=== PATIENT | male | born 1970 | race Caucasian/White ===

== ENCOUNTER 2019-01-09 10:16 | Day surgery (SDC) | payer OTHER | END 2019-01-09 16:00 | disposition home or self-care (01) | LOC: AMB-ENDOS 10:16 | DX: K63.89 Other specified diseases of intestine (principal); K50.113 Crohn's disease of large intestine with fistula ==

== ENCOUNTER 2022-04-25 14:29 | Inpatient (IN) | payer OTHER ==
[~2022-04-25] VITALS: Ht 177.8 cm; Wt 98.0 kg
[2022-04-25] MEDS ORDERED: AMLODIPINE BESY10 MG PO (14:43)
--- NOTE | 2022-04-25 14:43 | NUR ---
SE RECIBE PACIENTE [facility], EL MISMO SE ENCUENTRA ALERTA Y ORIENTADOX3. REFIERE TENER DOLOR ABDOMINAL DEBIDO A QUE TIENE DIOMEDES OBSTRUCCION. SE MONITOREAN VS, SE PRESENTA A DR. DEJESUS Y SE UBICA EN SECCION K
--- NOTE | 2022-04-25 18:24 | NUR ---
PTE EVALUADO POR DR. MARQUEZ SE EJECUTA ORDENM Y SE CLAUDIA MUESTRA BAJO MEIDAS ASEPTICAS.
--- NOTE | 2022-04-25 18:56 | NUR ---
SE INTENTA COLOCAR NASOGASTRICO EN EL PROCEDIEMIENTO PTE SE LO SACO CON KENNEDY MANO . PTE REFIERE QUE SE VUELTA INTENTAR MAS TARDE
[2022-04-26] MEDS ORDERED: BACLOFEN20 MG (13:41)
[2022-04-26] MEDS ORDERED: VALSARTAN320 MG (13:42)
[2022-04-26] MEDS ORDERED: DIETHYLPROPION75 MG (13:42)
[2022-04-26] MEDS ORDERED: HUMIRA(CF)40 MG/0.1 (13:42)
== END 2022-05-03 14:29 | disposition home or self-care (01) | DRG 389 ==
LOC: ER 14:29 → SURH 21:09 → SURG 21:09 → SURH 04-27 08:36
PROVIDERS: ADMIT Surgery; ATTEND Surgery
PROC: 02HV33Z Insertion of Infusion Device into Superior Vena Cava, Percutaneous Approach (ICD-10-PCS; principal; 2022-04-26)
PROC: BW21YZZ Computerized Tomography (CT Scan) of Abdomen and Pelvis using Other Contrast (ICD-10-PCS; 2022-05-01)
DX: K56.690 Other partial intestinal obstruction (principal); K50.113 Crohn's disease of large intestine with fistula; K21.9 Gastro-esophageal reflux disease without esophagitis; Z20.822 Contact with and (suspected) exposure to COVID-19; I11.9 Hypertensive heart disease without heart failure